=== PATIENT | female | born 1985 | race African-American/Black ===

== ENCOUNTER 2017-05-13 10:34 | Emergency (ER) | payer MEDICAID ==
[~2017-05-13] VITALS: Ht 154.9 cm; Wt 47.6 kg
[~2017-05-13 10:34] MED LIST: DIAZ10TA4 PO; METH5TAB2 PO; PANT40TA2 PO
[2017-05-13] MEDS ORDERED: METH40TA2 PO (10:46)
--- NOTE | 2017-05-13 10:55 | NUR ---
seen by Dr Hernandez
--- NOTE | 2017-05-13 11:20 | NUR ---
release of medical records signed by patient and form faxed to [facility]
--- NOTE | 2017-05-13 12:49 | NUR ---
re evaluated by Dr Hernandez.
--- NOTE | 2017-05-13 12:49 | NUR ---
patient walked out and told MD she will go somewhere else. Dr esparza aware and patient was discharged
[2017-05-13 12:50] VITALS: BP 119/103
== END 2017-05-13 12:56 | disposition home or self-care (01) ==
LOC: ER 10:34
DX: F11.20 Opioid dependence, uncomplicated (principal); Z85.038 Personal history of other malignant neoplasm of large intestine; Z88.8 Allergy status to other drugs, medicaments and biological substances
CPT/HCPCS: 99281; A4663

== ENCOUNTER 2017-06-08 13:49 | Emergency (ER) | payer MEDICAID ==
[~2017-06-08 13:49] MED LIST changes: +METH40TA2 PO; -METH5TAB2 PO
--- NOTE | 2017-06-08 13:56 | NUR ---
PT DID NOT WANT TO BE TRIAGED AND REFUSED TO BE SEEN BY ER MD. PT SAID " I JUST WANT COLOSTOMY BAG". HOSPITAL POLICY WAS EXPLAINED TO THE PT. PT LEFT ER. DR MONTERO WAS NOTIFIED.
== END 2017-06-08 14:01 | disposition left against medical advice (07) ==
LOC: ER 13:49
DX: Z53.21 Procedure and treatment not carried out due to patient leaving prior to being seen by health care provider (principal)

== ENCOUNTER 2017-06-17 20:15 | Emergency (ER) | payer MEDICAID ==
[~2017-06-17] VITALS: Ht 154.9 cm; Wt 54.4 kg
--- NOTE | 2017-06-17 21:45 | NUR ---
received from waiting rm. ambulatory, c/o lower back pain, denies trauma or difficulty voiding, pending MD gil
--- NOTE | 2017-06-17 22:10 | NUR ---
exam by Dr. Jacobson
[2017-06-17 22:52] LABS: *BILIRUBIN,URIN NEGATIVE (NEGATIVE); *BLOOD, URINE NEGATIVE (NEGATIVE); *COLOR,URINE YELLOW (YELLOW); *KETONES,URINE NEGATIVE (NEGATIVE); *PROTEIN,URINE NEGATIVE (NEGATIVE); *UROBILINOGEN,URINE 0.2 E.U./dl (NORMAL); LEUKOCYTE ESTERASE ,URINE NEGATIVE (NEGATIVE); NITRITE, URINE NEGATIVE (NEGATIVE); UGLUCOSE NEGATIVE (NEGATIVE)
[2017-06-17 22:54] LABS: *URINE HCG, QUAL NEGATIVE (NEGATIVE)
[2017-06-17 22:56] LABS: *CLARITY,URINE HAZY (CLEAR)
[2017-06-17 22:58] LABS: BACTERIA,URINE MODERATE /HPF (NONE SEEN); MUCUS,URINE MANY /LPF (0-FEW); SQUAMOUS EPITHELIAL CELL,UR MANY /HPF (NONE SEEN); WBC,URINE 0-3 /HPF (0-3)
--- NOTE | 2017-06-18 00:20 | NUR ---
re louise by Dr. Jacobson
[2017-06-18] MEDS ORDERED: LEVOFLOXACIN 750 MG TABLET PO ONE (00:30)
[2017-06-18] MEDS ORDERED: HYDROMORPHONE HCL 2 MG TABLET PO ONE (00:30)
[2017-06-18] MEDS ORDERED: LEVOFLOXACIN 750 MG TABLET ONE (00:48)
[2017-06-18] MEDS ORDERED: HYDROMORPHONE HCL 2 MG TABLET ONE (00:48)
--- NOTE | 2017-06-18 00:50 | NUR ---
medication effective, pain 0/0
--- NOTE | 2017-06-18 01:00 | NUR ---
d/c to home in stable condition with prescription, verbalized understanding of instruction given
[2017-06-18 02:07] VITALS: BP 137/64
== END 2017-06-18 01:00 | disposition home or self-care (01) ==
LOC: ER 20:16
DX: R10.9 Unspecified abdominal pain (principal); R19.09 Other intra-abdominal and pelvic swelling, mass and lump; F11.20 Opioid dependence, uncomplicated; Z88.1 Allergy status to other antibiotic agents; K50.90 Crohn's disease, unspecified, without complications; Z85.038 Personal history of other malignant neoplasm of large intestine; Z87.440 Personal history of urinary (tract) infections; Z93.3 Colostomy status
CPT/HCPCS: 84703; A4663

== ENCOUNTER 2017-08-09 03:33 | Emergency (ER) | payer MEDICAID ==
[~2017-08-09] VITALS: Ht 154.9 cm; Wt 49.9 kg
[~2017-08-09 03:33] MED LIST changes: -PANT40TA2 PO
--- NOTE | 2017-08-09 04:08 | NUR ---
RECEIIVED PT AAOX4, AMBULATORY, IN NO DISTRESS, C/O DYSURIA, CASSIE LOWER BACK PAIN AND GENERALIZED ABD PAIN,DENIES CP/SOB,NAUSEA/VOMITING. BREATHING EVEN UNLABORED, ABD SOFT NON DISTENDED WITH +BS, HAS A COLOSTOMY PT PLACED IN BED, BED IN LOWEST POSITION, LOCKED, HOB UP, SR UP X2 FOR SAFETY, CB WITHIN REACH, WILL CONTINUE WITH POC
[2017-08-09] MEDS ORDERED: HYDROMORPHONE 1 MG/1 ML DISP.SYRIN IM ONE (04:30)
[2017-08-09] MEDS ORDERED: ONDANSETRON 4 MG/2 ML VIAL IM ONE (04:30)
[2017-08-09] MEDS ORDERED: ONDANSETRON 4 MG/2 ML VIAL ONE (04:36)
[2017-08-09] MEDS ORDERED: HYDROMORPHONE 4 MG/1 ML DISP.SYRIN ONE (04:37)
[2017-08-09 05:03] LABS: *URINE HCG, QUAL NEGATIVE (NEGATIVE)
[2017-08-09 05:07] LABS: *BILIRUBIN,URIN NEGATIVE (NEGATIVE); *BLOOD, URINE Trace-intact (NEGATIVE); *CLARITY,URINE CLEAR (CLEAR); *COLOR,URINE YELLOW (YELLOW); *KETONES,URINE NEGATIVE (NEGATIVE); *PROTEIN,URINE NEGATIVE (NEGATIVE); *UROBILINOGEN,URINE 0.2 E.U./dl (NORMAL); LEUKOCYTE ESTERASE ,URINE NEGATIVE (NEGATIVE); NITRITE, URINE NEGATIVE (NEGATIVE); UGLUCOSE NEGATIVE (NEGATIVE)
[2017-08-09] MEDS ORDERED: OXYCODONE/APAP 5-325 MG TABLET PO ONE (05:45)
[2017-08-09 06:01] LABS: BACTERIA,URINE NONE SEEN /HPF (NONE SEEN); RBC,URINE 0-3 /HPF (0-3); SQUAMOUS EPITHELIAL CELL,UR FEW /HPF (NONE SEEN); WBC,URINE 0-3 /HPF (0-3)
[2017-08-09 06:02] LABS: MUCUS,URINE MODERATE /LPF (0-FEW)
--- NOTE | 2017-08-09 06:03 | NUR ---
Patient discharged to home in stable conditon. Written and verbal after care instructions given. Patient verbalizes understanding of instructions. WALKED OUT OF ER WITH NO DISTRESS NOTED
[2017-08-09 06:04] VITALS: BP 116/79
[2017-08-09] MEDS ORDERED: OXYCODONE/APAP 5-325 MG TABLET ONE (06:09)
== END 2017-08-09 06:05 | disposition home or self-care (01) ==
LOC: ER 03:35
DX: R30.0 Dysuria (principal); G89.29 Other chronic pain; M54.9 Dorsalgia, unspecified; K50.90 Crohn's disease, unspecified, without complications; Z88.5 Allergy status to narcotic agent; Z85.038 Personal history of other malignant neoplasm of large intestine
CPT/HCPCS: 84703; A4663; J1170; J2405

== ENCOUNTER 2017-12-01 20:12 | Inpatient (IN) | payer MEDICAID ==
[~2017-12-01] VITALS: Ht 154.9 cm; Wt 54.4 kg
--- NOTE | 2017-12-01 20:31 | NUR ---
Dr. Hernandez at bedside for MSE.
--- NOTE | 2017-12-01 20:43 | NUR ---
Collected urine sample, sent to lab.
[2017-12-01 20:46] LABS: *BLOOD, URINE NEGATIVE (NEGATIVE); *CLARITY,URINE SLIGHTLY CLOUDY (CLEAR); *COLOR,URINE DARK YELLOW (YELLOW); *KETONES,URINE 2+ (NEGATIVE); *UROBILINOGEN,URINE 0.2 E.U./dl (NORMAL); LEUKOCYTE ESTERASE ,URINE NEGATIVE (NEGATIVE); NITRITE, URINE NEGATIVE (NEGATIVE); UGLUCOSE NEGATIVE (NEGATIVE)
[2017-12-01 20:47] LABS: *BILIRUBIN,URIN 2+ (NEGATIVE); *PROTEIN,URINE 3+ (NEGATIVE)
[2017-12-01 20:51] LABS: RBC,URINE 0-3 /HPF (0-3)
[2017-12-01 20:52] LABS: BACTERIA,URINE FEW /HPF (NONE SEEN); MUCUS,URINE MANY /LPF (0-FEW); SQUAMOUS EPITHELIAL CELL,UR FEW /HPF (NONE SEEN)
[2017-12-01 21:09] LABS: BASOPHILS # (AUTO) 0.1 K/uL (0.0-8.0); EOSINOPHILS % (AUTO) 0.1 % (0.0-7.0); HEMATOCRIT 30.9 % (31.2-41.9); HEMOGLOBIN 9.8 g/dL (10.9-14.3); LYMPHOCYTES # (AUTO) 1.3 K/uL (20.0-40.0); LYMPHOCYTES % (AUTO) 22.5 % (20.5-51.5); MEAN CORPUSCULAR HEMOGLOBIN 22.3 uug (24.7-32.8); MEAN CORPUSCULAR HGB CONC 32 g/dL (32.3-35.6); MEAN CORPUSCULAR VOLUME 70.1 fL (75.5-95.3); MONOCYTES # (AUTO) 0.5 K/uL (2.0-10.0); MONOCYTES % (AUTO) 8.2 % (0.0-11.0); NEUTROPHILS # (AUTO) 3.8 K/uL (1.8-8.9); NEUTROPHILS % (AUTO) 68.2 % (38.5-71.5); PLATELET COUNT (AUTO) 382 K/uL (179-408); RED BLOOD CELL COUNT(AUTO) 4.42 MIL/uL (3.63-4.92); WHITE BLOOD COUNT (AUTO) 5.6 K/uL (3.8-11.8)
[2017-12-01 21:18] LABS: BILIRUBIN,DIRECT 0.1 mg/dL (0.0-0.2); BILIRUBIN,TOTAL 0.6 mg/dL (0.2-1.0); CREATININE 1.1 mg/dL (0.6-1.3); POTASSIUM 3.5 mmol/L (3.5-5.1); TOTAL PROTEIN, SERUM 8.8 g/dL (6.4-8.2)
[2017-12-01] MEDS ORDERED: IV NORMAL SALINE 1000 ML BAG IV ONE (22:15)
--- NOTE | 2017-12-01 23:30 | NUR ---
Patient requests some pain medication and IV fluids, refuses to be discharged. MD notified.
[2017-12-01] MEDS ORDERED: MORPHINE SULFATE 4 MG/1 ML DISP.SYRIN ONE (23:44)
[2017-12-01] MEDS ORDERED: ONDANSETRON 4 MG/2 ML VIAL ONE (23:44)
[2017-12-01] MEDS ORDERED: MORPHINE SULFATE 4 MG/1 ML DISP.SYRIN IV ONE (23:45)
[2017-12-01] MEDS ORDERED: ONDANSETRON 4 MG/2 ML VIAL IV ONE (23:45)
--- NOTE | 2017-12-01 23:50 | NUR ---
Administered morphine and zofran. Patient reports she still doesn't feel better, wants IV fluids. MD notified.
--- NOTE | 2017-12-01 23:57 | NUR ---
Performed orthostatic hypotension test. Patient's BP lying 126/91, HR 92. Patient's BP standing 120/99, HR 91. Notified.
--- NOTE | 2017-12-02 | NUR ---
Patient refusing to leave, reports wants 20min to rest for awhile, needs a ride home. Nurse kitchen supervisor notified for taxi voucher.
--- NOTE | 2017-12-02 00:30 | NUR ---
Note jj in EDM - 12/02/17 at 0413 by JAYLEN Patient refusing to leave, reports she just wants to rest for awhile, refusing to have IV access discontinued, informed that taxi to bring her home has arrived and will be leaving soon, still refuses to leave. notified. Call made to [facility].
--- NOTE | 2017-12-02 00:30 | NUR ---
Patient refusing to leave, reports she just wants to rest for awhile, refusing to have IV access discontinued, security called for assistance, informed that taxi to bring her home has arrived and will be leaving soon, still refuses to leave. notified. Call made to [facility].
--- NOTE | 2017-12-02 00:34 | NUR ---
Rickie gardner in ED - 12/02/17 at 0411 by JAYLEN Taxi has arrived, pt refusing to leave, doesn't want to take out IV. Security called for assistance.
--- NOTE | 2017-12-02 00:40 | NUR ---
Patient has some blood in colostomy bag. notified.
[2017-12-02 02:02] LABS: BASOPHILS % (AUTO) 0.8 % (0.0-2.0); EOSINOPHILS % (AUTO) 0.3 % (0.0-7.0); HEMATOCRIT 27.9 % (31.2-41.9); HEMOGLOBIN 8.9 g/dL (10.9-14.3); LYMPHOCYTES # (AUTO) 1.2 K/uL (20.0-40.0); LYMPHOCYTES % (AUTO) 25.4 % (20.5-51.5); MEAN CORPUSCULAR HEMOGLOBIN 22.6 uug (24.7-32.8); MEAN CORPUSCULAR HGB CONC 32 g/dL (32.3-35.6); MEAN CORPUSCULAR VOLUME 70.8 fL (75.5-95.3); MONOCYTES # (AUTO) 0.4 K/uL (2.0-10.0); MONOCYTES % (AUTO) 8.2 % (0.0-11.0); NEUTROPHILS # (AUTO) 3.2 K/uL (1.8-8.9); NEUTROPHILS % (AUTO) 65.3 % (38.5-71.5); PLATELET COUNT (AUTO) 329 K/uL (179-408); RED BLOOD CELL COUNT(AUTO) 3.94 MIL/uL (3.63-4.92); WHITE BLOOD COUNT (AUTO) 4.9 K/uL (3.8-11.8)
[2017-12-02] MEDS ORDERED: IV NORMAL SALINE 1000 ML BAG IV ONE (02:15)
[2017-12-02] MEDS ORDERED: MORPHINE SULFATE 4 MG/1 ML DISP.SYRIN IV ONE (02:15)
[2017-12-02] MEDS ORDERED: MORPHINE SULFATE 4 MG/1 ML DISP.SYRIN ONE (02:16)
--- NOTE | 2017-12-02 02:30 | NUR ---
Dr. Hernandez on panel call with Lucinda Bourne RAIL SWITCHMAN
[2017-12-02 02:33] LABS: *OCCULT BLOOD STOOL POSITIVE (NEGATIVE)
[2017-12-02] MEDS ORDERED: IV D5 1/2 NS 1000 ML 1,000 ML IV PRN (03:01)
--- NOTE | 2017-12-02 03:03 | NUR ---
Passed report to Deb HAGEN Tele.
[2017-12-02] MEDS ORDERED: ONDANSETRON 4 MG/2 ML VIAL IV PRN (03:15)
[2017-12-02] MEDS ORDERED: MORPHINE SULFATE 4 MG/1 ML DISP.SYRIN IV PRN ×2 (03:15→10:15)
[2017-12-02] MEDS ORDERED: CEFTRIAXONE 1 G in IV DEXTROSE 5% 50 ML IV SCH (03:15)
[2017-12-02] MEDS ORDERED: Z GUARD REMEDY PASTE 57 GM TUBE TOP PRN (03:15)
[2017-12-02] MEDS ORDERED: ACETAMINOPHEN 325 MG TABLET PO PRN (03:15)
--- NOTE | 2017-12-02 03:20 | NUR ---
NEW ADMIT FROM ER, ADMITTED FOR ANEMIA. PATIENT IS AAOX3 DENIES PAIN, SOB, DIZZINESS. SHE NOTED WITH COLOSTOMY BAG MID ABDOMEN WITH SMALL AMOUNT OF BLOOD. VSS STABLE BP 117/86, NJ 85, RR 18, O2 SAT @ 100% FROM AIR. SAFETY MEASURES INITIATED, WILL CONTINUE TO MONITOR PATIENT
[2017-12-02 03:37] VITALS: BP 117/86
[2017-12-02 03:46] LABS: BAND % (MANUAL) 1 % (0-10); EOSINOPHILS % (MANUAL) 1 % (0-8); LYMPHOCYTES % (MANUAL) 29 % (20-40); MONOCYTES % (MANUAL) 4 % (2-10); NEUTROPHILS % (MANUAL) 65 % (42-75)
[2017-12-02 04:00] VITALS: BP 120/77
[2017-12-02 04:33] LABS: IRON, SERUM 17 ug/dL (50-175)
[2017-12-02 06:41] LABS: BASOPHILS # (AUTO) 0.1 K/uL (0.0-8.0); BASOPHILS % (AUTO) 1.4 % (0.0-2.0); EOSINOPHILS % (AUTO) 0.7 % (0.0-7.0); HEMOGLOBIN 8.5 g/dL (10.9-14.3); LYMPHOCYTES # (AUTO) 1.1 K/uL (20.0-40.0); MEAN CORPUSCULAR HEMOGLOBIN 22.3 uug (24.7-32.8); MEAN CORPUSCULAR HGB CONC 31 g/dL (32.3-35.6); MEAN CORPUSCULAR VOLUME 71.3 fL (75.5-95.3); MONOCYTES # (AUTO) 0.4 K/uL (2.0-10.0); MONOCYTES % (AUTO) 8.6 % (0.0-11.0); NEUTROPHILS # (AUTO) 2.8 K/uL (1.8-8.9); NEUTROPHILS % (AUTO) 64.3 % (38.5-71.5); RED BLOOD CELL COUNT(AUTO) 3.79 MIL/uL (3.63-4.92); WHITE BLOOD COUNT (AUTO) 4.4 K/uL (3.8-11.8)
[2017-12-02 06:45] LABS: PLATELET COUNT (AUTO) 230 K/uL (179-408)
[2017-12-02] MEDS ORDERED: PANTOPRAZOLE SODIUM 40 MG VIAL IV SCH (07:30)
--- NOTE | 2017-12-02 10:48 | NUR ---
Patient returned from CT eating alanis prakash, I asked who told her she could eat, she said she talked with nurse practitioner and nurse practitioner said that the scan was finished so she could eat. I asked [place] if she has seen the patient and is it okay for patient to eat, [place] has not seen the patient therefore could not have told the patient she could eat.
[2017-12-02 11:49] VITALS: BP 111/60
[2017-12-02 11:49] LABS: LYMPHOCYTES % (MANUAL) 29 % (20-40); MONOCYTES % (MANUAL) 11 % (2-10); NEUTROPHILS % (MANUAL) 60 % (42-75)
[2017-12-02 12:10] LABS: *BLOOD, URINE Trace-intact (NEGATIVE); *CLARITY,URINE SLIGHTLY CLOUDY (CLEAR); *COLOR,URINE YELLOW (YELLOW); *KETONES,URINE 1+ (NEGATIVE); *PROTEIN,URINE NEGATIVE (NEGATIVE); *UROBILINOGEN,URINE 0.2 E.U./dl (NORMAL); LEUKOCYTE ESTERASE ,URINE NEGATIVE (NEGATIVE); NITRITE, URINE NEGATIVE (NEGATIVE); PH,URINE 5.5 (5.0-8.0); UGLUCOSE NEGATIVE (NEGATIVE)
[2017-12-02 12:23] LABS: *BILIRUBIN,URIN 1+ (NEGATIVE)
[2017-12-02 12:24] LABS: BACTERIA,URINE NONE SEEN /HPF (NONE SEEN); MUCUS,URINE MANY /LPF (0-FEW); SQUAMOUS EPITHELIAL CELL,UR MODERATE /HPF (NONE SEEN); URINE AMORPHOUS URATE FEW /HPF; WBC,URINE 0-3 /HPF (0-3)
[2017-12-02] MEDS ORDERED: HYDROCODONE/APAP 5-325MG TABLET PO PRN (14:15)
--- NOTE | 2017-12-02 14:20 | NUR ---
[place] wanted to know if pt felt comfortable leaving today, pt wanted to stay until she was seen by GI specialist. Ptient then asked for pain medication. I was in the room administering pain medication to the patient, a aria esparza was called on my other patient. I finished giving the pain medication and went to check on my other patient. After all was settled with the other patient, another nurse came and said this patient was fully dressed and going down the elevator. I called security to stop pt because pt still had iv heplock. The patient was already out the door by was stopped by security and removed her own IV. Charge nurse, [employer] MANAGER, supervisor felling bucking all aware of patient elopement.
== END 2017-12-02 14:00 | disposition left against medical advice (07) | DRG 663 ==
LOC: ER 20:12 → TELE 12-02 03:08 → MED 12-02 11:30
PROVIDERS: ADMIT Internal Medicine; ATTEND Internal Medicine
DX: D50.9 Iron deficiency anemia, unspecified (principal); F11.20 Opioid dependence, uncomplicated; K76.89 Other specified diseases of liver; G89.4 Chronic pain syndrome; Z85.038 Personal history of other malignant neoplasm of large intestine; F13.20 Sedative, hypnotic or anxiolytic dependence, uncomplicated; J45.909 Unspecified asthma, uncomplicated; M54.9 Dorsalgia, unspecified; N94.89 Other specified conditions associated with female genital organs and menstrual cycle; Z93.2 Ileostomy status; Z87.440 Personal history of urinary (tract) infections; R19.5 Other fecal abnormalities; Z87.11 Personal history of peptic ulcer disease; Z98.890 Other specified postprocedural states; K50.911 Crohn's disease, unspecified, with rectal bleeding
CPT/HCPCS: 36415; 83550; 84703; 85025; 85730; 86850; 86900; 86901; 87086; A4663; C9113; J2270; J2405; J3490; J7030

== ENCOUNTER 2018-07-30 12:15 | Emergency (ER) | payer MEDICAID ==
[~2018-07-30] VITALS: Ht 154.9 cm; Wt 59.0 kg
--- NOTE | 2018-07-30 12:24 | NUR ---
Dr Mayorga at the bedside for MSE.
[2018-07-30] MEDS ORDERED: MORPHINE SULFATE 2 MG/1 ML DISP.SYRIN IV ONE (12:30)
[2018-07-30] MEDS ORDERED: ONDANSETRON 4 MG/2 ML VIAL IV ONE (12:30)
[2018-07-30] MEDS ORDERED: MORPHINE SULFATE 4 MG/1 ML DISP.SYRIN ONE (12:35)
[2018-07-30] MEDS ORDERED: ONDANSETRON 4 MG/2 ML VIAL ONE (12:36)
[2018-07-30 12:43] LABS: *BILIRUBIN,URIN NEGATIVE (NEGATIVE); *BLOOD, URINE NEGATIVE (NEGATIVE); *CLARITY,URINE CLEAR (CLEAR); *COLOR,URINE YELLOW (YELLOW); *KETONES,URINE TRACE (NEGATIVE); *PROTEIN,URINE TRACE (NEGATIVE); *UROBILINOGEN,URINE 0.2 E.U./dl (NORMAL); LEUKOCYTE ESTERASE ,URINE NEGATIVE (NEGATIVE); NITRITE, URINE NEGATIVE (NEGATIVE); UGLUCOSE NEGATIVE (NEGATIVE)
[2018-07-30 12:45] LABS: *URINE HCG, QUAL NEGATIVE (NEGATIVE)
--- NOTE | 2018-07-30 12:50 | NUR ---
Pt refused to have blood drawn and become argumentive w/ senior cytogenetic technologist. made aware of refusal.
[2018-07-30 12:53] LABS: BACTERIA,URINE NONE SEEN /HPF (NONE SEEN); MUCUS,URINE FEW /LPF (0-FEW); RBC,URINE 0-3 /HPF (0-3); SQUAMOUS EPITHELIAL CELL,UR FEW /HPF (NONE SEEN); WBC,URINE 0-3 /HPF (0-3)
[2018-07-30 12:54] LABS: URINE AMORPHOUS URATE FEW /HPF
[2018-07-30] MEDS ORDERED: KETOROLAC TROMETHAMINE 60 MG INJ IM ONE ×2 (13:40→13:45)
--- NOTE | 2018-07-30 14:10 | NUR ---
IV removed. Catheter intact and site benign. Pressure and 4x4 gauze applied to site. No bleeding noted.
[2018-07-30 14:11] VITALS: BP 118/70
--- NOTE | 2018-07-30 14:12 | NUR ---
Patient discharged to home in stable conditon. Written and verbal after care instructions given. Patient verbalizes understanding of instructions.
== END 2018-07-30 14:19 | disposition home or self-care (01) ==
LOC: ER 12:15
DX: N83.201 Unspecified ovarian cyst, right side (principal); F11.10 Opioid abuse, uncomplicated; Z88.1 Allergy status to other antibiotic agents; Z88.8 Allergy status to other drugs, medicaments and biological substances; Z79.891 Long term (current) use of opiate analgesic; Z79.899 Other long term (current) drug therapy
CPT/HCPCS: 74176; 81001; 84703; 96372; 96374; 96375; 99284; J1885; J2270; J2405; A4663